=== PATIENT | female | born 2005 | race Caucasian/White ===

== ENCOUNTER 2024-11-04 23:03 | Emergency (ER) | payer OTHER, SELFPAY ==
[2024-11-04 23:03] VITALS: BP 133/82; PULSE 96; RESP 20; TEMP 36.7; O2SAT 100
[2024-11-05 02:21] LABS: BEDSIDEPREGUCG Negative (Negative)
[2024-11-05 02:30] VITALS: BP 106/77; PULSE 84; RESP 16; O2SAT 100
[2024-11-05 02:38] LABS: Add Urine Microscopic? YES; Appearance Urine Cloudy (Clear); Glucose Urine UA Negative (Negative); Leukocyte Esterase Ur 3+ LEU/UL (Negative); Need Manual Microscopic Reviewed; Nitrate Urine Negative (Negative); Non Pathogenic Casts 0-2; Specific Grav Ur 1.011 (1.001-1.035)
[2024-11-05] MEDS: CEPHALEXIN 500 MG CAPSULE PO (03:16)
[2024-11-05 03:22] VITALS: BP 126/63; PULSE 80; RESP 16; O2SAT 97
--- NOTE | 2024-11-05 06:06 | ED_ITS ---
HPI - Female Genitourinary General Chief complaint: Urogenital-Female Stated complaint: peeing blood Time Seen by Provider: 11/05/24 02:16 History of Present Illness HPI Narrative: 18-year-old otherwise healthy female presenting to the emergency department with urinary symptoms including burning urination, pressure with urination frequency and urgency as well as some blood in her urine. No history of urinary tract infections. No pelvic pain or abdominal pain, flank pain. No previous symptoms of UTIs in the past. No chance of per patient. No fever, chills or systemic features of infection. Related Data Allergies Allergy/AdvReac Type Severity Reaction Status Date / Time Sulfa (Sulfonamide Allergy Mild unknown Verified 11/04/24 23:05 Antibiotics) Review of Systems Review of Systems: As reviewed above in HPI PMFSH Family History Family History Father Alcoholism Hypertension Depression Mother Depression Social History Social History Social History: Student Smoking status: Never smoker Second hand tobacco smoke exposure: No Alcohol intake: never Substance use: never Substance use type: does not use Living arrangements: with family Occupation/Education: student Additional occupation/education comments: 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 Gender identity (if verbalized by the patient): Female Exam Narrative: GENERAL: [Well-appearing, well-nourished, and in no acute distress.] HEAD: [Normocephalic, atraumatic.] EYES: [PERRLA and EOMI.] NECK: Supple. CHEST: Normal chest rise ABDOMEN: [Soft, nondistended], [nontender], [No rigidity or guarding] EXTREMITIES: Normal range of motion. [No edema.] NEURO: [No focal deficits]. Alert and oriented [x3.] Course Vital Signs Vital signs: Vital Signs Temperature 36.7 C 11/04/24 23:03 Pulse Rate 96 11/04/24 23:03 Respiratory Rate 20 11/04/24 23:03 Blood Pressure 133/82 11/04/24 23:03 Pulse Oximetry 100 11/04/24 23:03 Oxygen Delivery Room Air 11/04/24 23:03 Temperature 36.7 C 11/04/24 23:03 Pulse Rate 80 11/05/24 03:22 Respiratory Rate 16 11/05/24 03:22 Blood Pressure 126/63 11/05/24 03:22 Pulse Oximetry 97 11/05/24 03:22 Oxygen Delivery Room Air 11/04/24 23:03 MDM - Female Genitourinary MDM Narrative Medical decision making narrative: 18-year-old otherwise healthy female presenting to the emergency department with urinary symptoms including burning urination, pressure with urination frequency and urgency as well as some blood in her urine. No history of urinary tract infections. No pelvic pain or abdominal pain, flank pain. No previous symptoms of UTIs in the past. No chance of per patient. No fever, chills or systemic features of infection. Urinalysis obtained which does show urinary tract infection. Urine culture sent. She was started on Keflex and prescription sent to her pharmacy. Medical Records Attestation: I reviewed the patient's medical records. Lab Data Attestation: I reviewed the patient's lab results. Labs: Lab Results 11/05/24 11/05/24 Range/Units 02:18 02:21 Urine Color Dark yellow (Yellow) Urine Appearance Cloudy H (Clear) Urine pH 6.5 (5.0-9.0) Ur Specific [place] 1.011 (1.001-1.035) Urine Protein 3+ H (Negative) mg/dL Urine Glucose (UA) Negative (Negative) mg/dL Urine Ketones Negative (Negative) mg/dL Ur Blood (Man) 3+ H (Negative) Urine Nitrate Negative (Negative) Urine Bilirubin Negative (Negative) Urine Urobilinogen 0.2 (<2.0) mg/dL Add Ur Microanalysis Reviewed Leukocyte Esterase Rfl 3+ H (Negative) MIGUEL/UL Urine RBC >100 H (0-2) /hpf Urine WBC 10-15 H (0-3) /hpf Ur Squamous Epith Cells Occasional (Few) /hpf Urine Bacteria 1+ H /hpf Urine Casts 0-2 POC Urine HCG, Qual Negative (Negative) Discharge Plan Discharge Clinical Impression: UTI (urinary tract infection) Patient Disposition: Home Condition: Stable Instructions: Antibiotic Form, Urinary Tract Infection in Women (DC) Additional Instructions: You have a urinary tract infection which is causing your symptoms. We will treat this with a course of antibiotics for next 5 days. Return if you start feeling fevers, worsening pain or worsening symptoms. Pain going towards the flanks of the kidneys. Follow-up with your regular primary care provider. Take Tylenol and ibuprofen if any pain in addition to the antibiotics. Patient Language: Setswana Prescriptions: New cephalexin 500 mg capsule 500 mg PO Q12H 5 Days Qty: 10 0RF No Action propranolol 20 mg tablet 20 mg PO Q8H PRN (Reason: palpitations) Qty: 90 0RF buspirone 5 mg tablet 5 mg PO TID Qty: 90 0RF Follow-up/Referrals: Diana Terry MD [Primary Care Provider] - Time of Disposition: 03:03
== END 2024-11-05 03:18 | disposition home or self-care (01) ==
PROVIDERS: Emergency Provider Student in an Organized Health Care Education/Training Program; PCP Family Medicine
DX: N39.0 Urinary tract infection, site not specified (principal)
CPT/HCPCS: 81001; 81025; 87086; 99283; A9270

== ENCOUNTER 2024-11-12 17:07 | Emergency (ER) | payer OTHER, SELFPAY ==
[2024-11-12 17:14] VITALS: BP 119/78; PULSE 84; RESP 18; TEMP 36.8; O2SAT 100
--- NOTE | 2024-11-12 17:14 | ED.FEMALEGU ---
HPI - Female Genitourinary General Chief complaint: Urogenital-Female Stated complaint: Uti Symptoms Time Seen by Provider: 11/12/24 17:15 Source: patient and RN notes reviewed Mode of arrival: ambulatory Limitations: no limitations History of Present Illness HPI Narrative: 18-year-old female presented for complaint of burning with urination and blood in the urine. Onset today. Patient was treated for UTI on 11/05 with cephalexin, she completed the antibiotic 2 days ago. Said she had started to feel better before symptoms returned today. Denies abdominal pain, flank pain, constipation, n/v/d/f/c. Denies concern for STD. LMP 10/20. Related Data Allergies Allergy/AdvReac Type Severity Reaction Status Date / Time Sulfa (Sulfonamide Allergy Mild unknown Verified 11/12/24 17:21 Antibiotics) Review of Systems Review of Systems: CONSTITUTIONAL: Denies body aches, fever, chills, or sweats. CARDIOVASCULAR: Denies chest pain, palpitations, or edema. RESPIRATORY: Denies cough or dyspnea. GASTROINTESTINAL: Denies abdominal pain, nausea, vomiting, or diarrhea. GENITOURINARY: Reports dysuria, hematuria, denies frequency, urgency, flank pain, discharge SKIN: Denies rash, itching, or wounds. MUSCULOSKELETAL: Denies back pain or myalgia. 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 Gender identity (if verbalized by the patient): Female Comments At time of signature, I have reviewed and agree with nursing past medical, surgical, social and family history unless otherwise noted. Please see nursing chart for further information. There is no relevant family history pertinent to the presenting complaint Exam Narrative: GENERAL: Well-appearing and in no acute distress. ENT: Mucous membranes pink and moist. NECK: Normal AROM. Supple. CHEST: No respiratory distress. Clear to auscultation. HEART: Regular rate and rhythm. ABDOMEN: Soft, nontender, nondistended, normal active bowel sounds. No CVA tenderness SKIN: Warm, dry, no rash. NEURO: No focal deficits. Alert and oriented x3. Gait steady. PSYCH: Normal affect. Course Course Emergency Course: Patient is aware of diagnosis, understands and agrees to treatment plan. Anticipatory guidance given. Patient agrees to follow-up as directed and is aware of reasons to seek care at the emergency department. Portions of this record may have been created with voice recognition software Level of Care: Express Care Visit Vital Signs Vital signs: Reviewed MDM - Female Genitourinary MDM Narrative Medical decision making narrative: Discussed physical exam findings and urine dip. Reviewed urine culture from 11/05. Advised supportive measures and signs/symptoms to go to the ER. Pt is appropriate for outpt treatment and f/u. Differential Diagnosis Differential diagnosis: Likely urinary tract infection, bacterial vaginosis, vaginitis and cystitis Discharge Plan Discharge Clinical Impression: Urinary tract infection Patient Disposition: Home Condition: Stable Instructions: Antibiotic Form, Urinary Tract Infection in Women (ED) Additional Instructions: Take the antibiotic as prescribed The urine will be sent of for a culture to identify what type of bacteria is causing your infection. If the culture shows that the antibiotic will not get rid of your infection, you will be notified and a new antibiotic will be called in for you. Increase water intake you will need to follow up with your PCP, call to schedule an appointment. Go to the ER for any worsening symptoms or concerns Patient Language: Vincentian Prescriptions: New ciprofloxacin HCl [Cipro] 500 mg tablet 500 mg PO Q12H 5 Days Qty: 10 0RF No Action propranolol 20 mg tablet 20 mg PO Q8H PRN (Reason: palpitations) Qty: 90 0RF buspirone 5 mg tablet 5 mg PO TID Qty: 90 0RF Follow-up/Referrals: PHYSICIAN,[facility] INTEGR[employer] ARCHITECT [Primary Care Provider] - Time of Disposition: 17:31
[2024-11-12 17:24] LABS: EDUAAPPEAR Cloudy; EDUABILI Negative (Negative); EDUABLOOD 3+ (Negative); EDUACOLOR1 Yellow; EDUAGLUCOSE Negative (Negative); EDUAKETONE Negative (Negative); EDUALEUKO 3+ (Negative); EDUANITRATE Negative (Negative); EDUAPH 6.0; EDUAPROTEIN Trace (Negative); EDUASPGRAVITY 1.020; EDUAUROBILI 0.2
== END 2024-11-12 17:38 | disposition home or self-care (01) ==
PROVIDERS: Emergency Provider Nurse Practitioner Family
DX: N39.0 Urinary tract infection, site not specified (principal)
CPT/HCPCS: 81003; 87086; 99213; G0463